=== PATIENT | female | born 1975 | race Caucasian/White ===

== ENCOUNTER 2017-03-15 20:03 | Emergency (ER) | payer OTHER | END 2017-03-16 00:52 | disposition home or self-care (01) | LOC: ER 20:03 | DX: M54.42 Lumbago with sciatica, left side (principal); M79.605 Pain in left leg; G89.29 Other chronic pain; F17.210 Nicotine dependence, cigarettes, uncomplicated; Z90.710 Acquired absence of both cervix and uterus; Z79.899 Other long term (current) drug therapy; Z79.810 Long term (current) use of selective estrogen receptor modulators (SERMs) | CPT/HCPCS: 96372; 99282-25 ==